=== PATIENT | male | born 1945 | race Caucasian/White ===

== ENCOUNTER 2016-09-08 06:21 | Emergency (ER) | payer MEDICARE, OTHER ==
[2016-09-08] MEDS ORDERED: MELO7.5T4 PO (06:37)
[2016-09-08] MEDS ORDERED: CIAL5TAB PO (06:43)
[2016-09-08] MEDS ORDERED: BENZ1CAP34 PO (06:43)
[2016-09-08] MEDS ORDERED: CYCL1TAB29 PO (06:43)
[2016-09-08] MEDS ORDERED: ROSU1TAB10 PO (06:43)
[2016-09-08] MEDS ORDERED: METO25TA6 PO (06:43)
[2016-09-08] MEDS ORDERED: AMLO10TA2 PO (06:43)
[2016-09-08] MEDS ORDERED: LOSA100T2 PO (06:43)
[2016-09-08] MEDS ORDERED: PRED10 PO (06:43)
--- NOTE | 2016-09-08 19:12 | PD ---
HPI Chief Complaint: Code Blue Time Seen by Provider: 19:02 Travel History International Travel<30 days: No Contact w/Intl Traveler<30days: No Traveled to known affect area: No History of Present Illness HPI The patient is a 71-year-old male who was found unresponsive on his couch at home by family members. It was well over an hour before the last time he was seen. The downtime is unknown. SQ responded first and a Combitube was placed. Blood glucose was 222. He underwent ACLS protocol and no shock 6 times and given 7 epinephrines. 450 of amiodarone was given. 100 of bicarbonate was given. His rhythm initially was asystole and then ventricular fibrillation and then PEA. The patient underwent ACLS protocol in the home and then in the ambulance was transferred here. After evaluating the patient in the history but cold was terminated at 061 8 in the morning. The time he arrived here ACLS protocol had been ongoing for over 40 minutes. The patient's doctor is Dr. Lamine Dior who is in [place]. His phone number is: [phone]. He does offer to sign the certificate. [facility] Past Medical History Arthritis: Yes Hypertension: Yes Past Surgical History Abdominal Surgery: Yes (INFANT TWO SURGERY RIGHT GROIN AND UMBILICAL HERNIA REPAIR) Tympanostomy Tube: Yes (LEFT EAR DRUM REMOVED DUE TO INJURY 1959) Social History Alcohol Use: Yes (BEER EVERY DAY COUPLE CANS A DAY) Tobacco Use: No Allergies-Medications (Allergen,Severity, Reaction): Coded Allergies: No Known Allergies (Unverified , 09/08/16) Reported Meds & Prescriptions Reported Meds & Active Scripts Active Reported Prednisone 10 Mg Tab 10 Mg PO DAILY Benzonatate 200 Mg Cap 200 Mg PO TID PRN Flexeril (Cyclobenzaprine HCl) 10 Mg Tab 10 Mg PO TID Metoprolol Succinate ER 24 HR (Metoprolol Succinate) 25 Mg Tab 25 Mg PO DAILY Losartan-Hydrochlorothiazide 100-25 Mg Tab 1 Tab PO DAILY Rosuvastatin (Rosuvastatin Calcium) 40 Mg Tab 40 Mg PO DAILY Cialis (Tadalafil) 5 Mg Tab 5 Mg PO DAILY Do not exceed 1 dose/day. Amlodipine (Amlodipine Besylate) 10 Mg Tab 10 Mg PO DAILY Meloxicam 7.5 Mg Tab 7.5 Mg PO BID Review of Systems ROS Limitations: Unresponsive Physical Exam Narrative GENERAL: The patient is unresponsive with no respiratory effort and no pulse. SKIN: Focused skin assessment is cool and moist, pale HEAD: Atraumatic. Normocephalic. EYES: Pupils fixed and dilated. No scleral icterus. No injection or drainage. ENT: No nasal bleeding or discharge. NECK: Trachea midline. No JVD. CARDIOVASCULAR: No heart beat is detected RESPIRATORY:Clear to auscultation. Breath sounds equal bilaterally. GASTROINTESTINAL: Abdomen soft, non-tender, with minimal distention. Hepatic and splenic margins not palpable. MUSCULOSKELETAL: No obvious deformities. No clubbing. No cyanosis. No edema. NEUROLOGICAL: The patient is comatose and no movement is detected from the patient MDM Medical Decision Making Medical Screen Exam Complete: Yes Emergency Medical Condition: Yes Medical Record Reviewed: Yes Differential Diagnosis Sudden cardiac , pneumothorax, hypoglycemia Narrative Course The patient appears to have sudden cardiac . He likely had a prolonged down time, there is no sign of brain activity and the history is that of prolonged cardiac arrest. His physician in [place] will sign the certificate. Diagnosis Primary Impression: EXPIRATION Patient Instructions: General Instructions Departure Forms: Tests/Procedures Additional Instructions: Sudden cardiac Disposition: 20 Condition: Grayson Esposito MD Sep 08, 2016 19:12
== END 2016-09-08 08:32 | disposition expired ==
LOC: PHED 06:21
DX: I46.9 Cardiac arrest, cause unspecified (principal)
CPT/HCPCS: 99284